=== PATIENT | male | born 1980 | race Caucasian/White ===

== ENCOUNTER 2018-11-20 10:35 | Emergency (ER) | payer BC, MEDICAID, OTHER ==
[2018-11-20 10:43] VITALS: BP 131/71
[2018-11-20] MEDS: predniSONE TAB* 20 MG PO ONE (11:24)
[2018-11-20] MEDS: Albuterol 2.5 MG/3 ML NEB.SOL* (0.083%) INH ONE (11:24)
--- NOTE | 2018-11-20 11:27 | UC ---
Throat Pain/Nasal Geoffrey HPI - HPI Summary HPI Summary: 38 y/o male presents to the urgent care c/o nasal congestion, sinus pain and pressure w/ clear nasal discharge for the past 4 days. Pt reports he has Hx of Asthma and he developed wheezing yesterday. He has been using his inhaler, but he is traveling here and doesn't have his nebulizer machine w/ him. He also c/ o of frequency and burning on urination for the past 2 days w/o any penile discharge or Hx of STD's. Pt states Hx of UTI's in the past. sinus pain and BRUMFIELD is 6/10. Pt denies fever, SOB, chest pain, dizziness, lower back pain, flank pain, abdominal pain, N/v/d. - History of Current Complaint Chief Complaint: UCGeneralIllness Stated Complaint: SINUS Time Seen by Provider: 11/20/18 10:50 Hx Obtained From: Patient Onset/Duration: Gradual Onset Severity: Moderate Pain Intensity: 6 - BRUMFIELD Pain Scale Used: 0-10 Numeric Cough: Nonproductive - dry Associated Signs & Symptoms: Positive: Wheezing, Sinus Discomfort, Nasal Discharge, Fever - subjective at home the first day - Epiglottits Risk Factors Epiglottis Risk Factors: Negative - Allergies/Home Medications Allergies/Adverse Reactions: Allergies Allergy/AdvReac Type Severity Reaction Status Date / Time amlodipine Allergy Edema Verified 11/20/18 10:43 phenazopyridine Allergy Altered Verified 11/20/18 10:44 [From Pyridium] Mental Status Sulfa (Sulfonamide Allergy anaph Verified 11/20/18 10:44 Antibiotics) Home Medications: Home Medications Fluticasone/Vilanterol MDI(NF) [Breo Ellipta MDI 100/25(NF)] 1 puff .ROUTE DAILY 11/20/18 [History Confirmed 11/20/18] PMH/Surg Hx/FS Hx/Imm Hx Previously Healthy: Yes Cardiovascular History: Hypertension Respiratory History: Asthma - Surgical History Surgical History: Yes Surgery Procedure, Year, and Place: RIGHT KNEE SURGERY ARTHROSCOPY LATERAL RELEASE 1994,RT ANKLE SURGERY/HYSTERECTOMY/BILATERAL BREAST RECONSTRUCTION CHANGE OF SEX FROM FEMALE TO MALE - Family History Known Family History: Positive: Hypertension - diet controlled - Social History Occupation: Employed Full-time Lives: With Family Alcohol Use: Weekly Substance Use Type: None Smoking Status (MU): Never Smoked Tobacco - Immunization History Most Recent Influenza Vaccination: none Most Recent Tetanus Shot: unk Most Recent Pneumonia Vaccination: none Review of Systems All Other Systems Reviewed And Are Negative: Yes Constitutional: Positive: Negative Skin: Positive: Negative Eyes: Positive: Negative ENT: Positive: Nasal Discharge - clear, Sinus Congestion, Sinus Pain/Tenderness Respiratory: Positive: Cough - dry, Other - wheezing Cardiovascular: Positive: Negative Gastrointestinal: Positive: Negative Genitourinary: Positive: Dysuria, Frequency, Urgency Motor: Positive: Negative Neurovascular: Positive: Negative Musculoskeletal: Positive: Negative Neurological: Positive: Headache - mild Psychological: Positive: Negative Is Patient Immunocompromised?: No Physical Exam - Summary Physical Exam Summary: Vital Signs Reviewed: Yes General: well developed, well nourished male sitting in the examining table w/o any apparent distress Eyes: Positive: Conjunctiva Clear - PERRLA, EOMI, fundi grossly normal ENT: Positive: Normal ENT inspection, Hearing grossly normal, Pharynx normal, Nasal congestion - edematous and erythematous nasal mucosa, Nasal drainage - yellowish drainage, TMs normal. Negative: Tonsillar swelling, Tonsillar exudate Neck: Positive: Supple, Nontender, No Lymphadenopathy Respiratory: no orthopnea or dyspnea. Able to speak in full sentences, no retractions or accessory muscle use, no tripod position, stridor, or head bobbing. Positive breath sounds bilaterally. B/L upper posterior lungs w/ mild wheezing, no rhonchi,, no crackles or rales. Cardiovascular: Positive: RRR, No Murmur, Pulses Normal, Brisk Capillary Refill Abdomen Description: Positive: Nontender, No Organomegaly, Soft. Negative: CVA Tenderness (R), CVA Tenderness (L) Bowel Sounds: Positive: Present Musculoskeletal Exam: Normal Musculoskeletal: Positive: Strength Intact, ROM Intact, No Edema Neurological Exam: Normal Psychological Exam: Normal Skin Exam: Normal Triage Information Reviewed: Yes Vital Signs: Initial Vital Signs Temp 99 F 11/20/18 10:41 Pulse 106 11/20/18 10:41 Resp 20 11/20/18 10:41 BP 131/71 11/20/18 10:41 Pulse Ox 100 11/20/18 10:41 Throat Pain/Nasal Course/Dx - Course Course Of Treatment: 38 y/o male presents to the urgent care c/o nasal congestion, sinus pain and pressure w/ clear nasal discharge for the past 4 days. Pt reports he has Hx of Asthma and he developed wheezing yesterday. He has been using his inhaler, but he is traveling here and doesn't have his nebulizer machine w/ him. He also c/o of frequency and burning on urination for the past 2 days w/o any penile discharge or Hx of STD's. Pt states Hx of UTI 's in the past. sinus pain and BRUMFIELD is 6/10. Pt denies fever, SOB, chest pain, dizziness, lower back pain, flank pain, abdominal pain, N/v/d. Pt w/ asthma exacerbation due to upper respiratory infection and possible UTI on examination. Rapid Influenza A&B: negative. UA: 1+ leukoesteraces. Pt w/ posterior B/l lungs w/ mild wheezing, good air entry B/L on examination. O2Sat: 100%. Pt given Prednisone PO and Albuterol treatment to alleviate symptoms. Pt tolerated well treatment and lungs improved,and wheezing resolved. Patient prescribed , Prednisone taper dose, Albuterol inhaler. and Ciprofloxacin PO for prophylactic treatment of UTI. Urine sent for culture to r/o any abnormality. Pt will be notified of the results. The patient was recommended to increase fluid intake. Take medications as recommended. Pt advised to returned to the clinic or f/u w/ PCP if symptoms do not improve. All D/C instructions explained. Patient understood and agree w/ plan of care. Pt left clinic hemodynamically stable , A&OX3 - Differential Dx/Diagnosis Differential Diagnosis/HQI/PQRI: Influenza, Pharyngitis, Sinusitis, URI, Other - astham exacerbation, bronchitis Provider Diagnosis: Asthma with acute exacerbation in adult, UTI (urinary tract infection) Discharge - Sign-Out/Discharge Documenting (check all that apply): Patient Departure - d/c home All imaging exams completed and their final reports reviewed: No Studies - Discharge Plan Condition: Stable Disposition: HOME Prescriptions: Albuterol HFA INHALER* [Ventolin HFA Inhaler*] 1 - 2 puff INH Q6H PRN #1 mdi PRN Reason: Wheezing Ciprofloxacin TAB* [Cipro 500 MG TAB*] 500 mg PO BID #14 tab predniSONE TAB* [Deltasone 20 MG TAB*] 20 mg PO DAILY #8 tab Patient Education Materials: Asthma (ED), Urinary Tract Infection in Men (ED) Referrals: [facility] [place] [facility] REFERR[facility] [Outside] - 3 Days Additional Instructions: 1- Take Prednisone PO taper dose as directed starting tomorrow. First loading dose given today. 2-Use the albuterol inhaler as directed to alleviate wheezing. Increase fluid intake, rest and eat well. 3- If symptoms do not improve or worsen or your develop SOB with fever and severe wheezing please go immediately to the ER further evaluation and treatment. 4- Please take Ciprofloxacin PO as directed to alleviate possible UTI. Increase fluid intake 5-Urine sent for culture if any abnormality, you will be notified for further treatment. 6-If symptoms do not improve please return to the urgent care or f/u with your PCP for further management. - Billing Disposition and Condition Condition: STABLE Disposition: Home
--- NOTE | 2018-11-22 12:48 | UC ---
- Progress Note Progress Note: Please call pt to inform that urine culture is negative. Can d/c cipro now. If symptoms persist or recur, recommend f/u with PCP. Course/Dx - Diagnoses Provider Diagnoses: Asthma with acute exacerbation in adult, UTI (urinary tract infection) Discharge - Sign-Out/Discharge Documenting (check all that apply): Patient Departure All imaging exams completed and their final reports reviewed: No Studies - Discharge Plan Condition: Stable Disposition: HOME Prescriptions: Albuterol HFA INHALER* [Ventolin HFA Inhaler*] 1 - 2 puff INH Q6H PRN #1 mdi PRN Reason: Wheezing Ciprofloxacin TAB* [Cipro 500 MG TAB*] 500 mg PO BID #14 tab predniSONE TAB* [Deltasone 20 MG TAB*] 20 mg PO DAILY #8 tab Patient Education Materials: Asthma (ED), Urinary Tract Infection in Men (ED) Referrals: [facility] [place] [facility] [Outside] - 3 Days Additional Instructions: 1- Take Prednisone PO taper dose as directed starting tomorrow. First loading dose given today. 2-Use the albuterol inhaler as directed to alleviate wheezing. Increase fluid intake, rest and eat well. 3- If symptoms do not improve or worsen or your develop SOB with fever and severe wheezing please go immediately to the ER further evaluation and treatment. 4- Please take Ciprofloxacin PO as directed to alleviate possible UTI. Increase fluid intake 5-Urine sent for culture if any abnormality, you will be notified for further treatment. 6-If symptoms do not improve please return to the urgent care or f/u with your PCP for further management. - Billing Disposition and Condition Condition: STABLE Disposition: Home
== END 2018-11-20 12:05 | disposition home or self-care (01) ==
LOC: UCEAST 10:35
DX: J45.901 Unspecified asthma with (acute) exacerbation (principal); N39.0 Urinary tract infection, site not specified; I10 Essential (primary) hypertension
CPT/HCPCS: 81003; 87077; 87086; 99202; G0463; J7512